=== PATIENT | female | born 1990 | race Two or more races ===

== ENCOUNTER 2016-11-30 17:41 | Emergency (ER) | payer OTHER ==
[~2016-11-30] VITALS: Ht 162.6 cm; Wt 88.0 kg
[2016-11-30 18:05] VITALS: BP 113/51
[2016-11-30] MEDS ORDERED: MEDR150D9 IM (18:29)
[2016-11-30] MEDS ORDERED: KETOROLAC TROMETHAMINE INJ 60 MG/2 ML VIAL IM ONE ×2 (21:11→21:30)
== END 2016-11-30 21:17 | disposition home or self-care (01) ==
LOC: ER 17:45
DX: M54.5 Low back pain (principal)
CPT/HCPCS: A4606; Z7610